=== PATIENT | male | born 1975 | race Caucasian/White ===

== ENCOUNTER 2016-12-08 19:09 | Emergency (ER) | payer OTHER ==
[~2016-12-08] VITALS: Ht 185.4 cm; Wt 83.9 kg
--- NOTE | ~2016-12-08 | CR252 ---
[facility] A Service of [facility] & [facility] RADIOLOGY TEXT RESULTS PATIENT: LY MCKEON LOCATION: CFTX : 77 UNIT #: [id number] AGE: [address]: BRENDAN ARVIZU APRN SEX: M ORDER DR: [id number] [facility] [address] [place], [place] [address] [id number] MR#: [id number] Acc #: [id number] NAME: LY MCKEON : 1975 SEX: M STUDY DATE/TIME: 12/08/2016 19:46 UNIT: [facility] ROOM: STUDY DESCRIPTION: CR Tibia and Fibula 2 Views Lt Attending Physician: Brendan Arvizu Aprn Ordering Physician: Brendan Arvizu Aprn Primary Care Physician: Primary Care Physician No MEDICAL IMAGING REPORT This report is preliminary unless electronic signature is present EXAM Left tibia and fibula, 12/08/2016 1946 hours HISTORY Pain, swelling and redness for 2 days over the lower extremity. Possible spider bite. COMPARISON None. FINDINGS AP, lateral views of the tibia and fibula demonstrate no fracture, periosteal reaction or foreign body. There is subcutaneous edema over the mid and distal lower extremity. IMPRESSION Subcutaneous edema, diffusely, over the mid and distal lower leg. Tibia and fibula are normal. No foreign body seen. Dictated by... Martha Durant M.D. THIS IS AN ELECTRONICALLY VERIFIED REPORT Martha Durant M.D. at 12/09/2016 9:28 AM JULIO CESAR/jerry TD: 12/08/2016 23:51 JOB #: [id number] MEDICAL IMAGING REPORT Page 1 of 1 COPY
[~2016-12-08 19:09] MED LIST: AMOXICILLIN500 M1 PO; NO MEDICATIONS; VOLTAREN75 MG PO
[2016-12-08 20:50] LABS: BASOPHIL% 0.3 % (0-2.5); EOSINOPHIL# 0.1 X10e3 (0-0.7); EOSINOPHIL% 1.1 % (0.0-7.0); HEMATOCRIT 38.7 % (38.0-50.0); LYMPHOCYTE# 1.9 X10e3 (1.0-3.5); LYMPHOCYTE% 21.8 % (17.0-45.0); MEAN CELL VOLUME 92.8 FL (83-96); MEAN CORPUSCULAR HEMOGLOBIN 31.1 PG (28-34); MEAN CORPUSCULAR HGB CONC 33.5 g/dL (30-36); MEAN PLATELET VOLUME 7.4 FL (6.5-11.5); MONOCYTE# 0.9 X10e3 (0-1.0); NEUTROPHIL# 5.9 X10e3 (1.5-7.1); NEUTROPHIL% 66.8 % (40-75); PLATELET COUNT 184 X10e3 (140-420); RED BLOOD COUNT 4.17 X10e (3.90-5.60); RED CELL DISTRIBUTION WIDTH 14.4 % (11.0-15.5); WHITE BLOOD COUNT 8.8 X10e3 (4.0-10.5)
[2016-12-08 20:51] LABS: DIFF IND NO
[2016-12-08 21:19] LABS: ALBUMIN SERUM 3.8 g/dL (3.5-5.0); BILIRUBIN, DIRECT 0.1 mg/dL (0.0-0.2); BILIRUBIN,INDIRECT 0.7 mg/dL (0.0-0.9); BILIRUBIN,TOTAL 0.8 mg/dL (0.2-2.0); BUN/CREATININE RATIO 13.33; CALCIUM SERUM 8.7 mg/dL (8.4-10.2); CREATININE SERUM 1.2 mg/dL (0.6-1.4); GLOM FILT RATE Estimated 75.2 mL/min (>60); POTASSIUM 3.9 mmol/L (3.5-5.1); PROTEIN TOTAL SERUM 6.8 g/dL (6.0-8.3)
== END 2016-12-08 22:25 | disposition home or self-care (01) ==
LOC: CED 19:09 → CFTX 19:09
PROVIDERS: Nurse Practitioner Family
DX: L03.116 Cellulitis of left lower limb (principal); F17.210 Nicotine dependence, cigarettes, uncomplicated; Z79.2 Long term (current) use of antibiotics; Z79.899 Other long term (current) drug therapy
CPT/HCPCS: 36415; 73590; 80048; 80076; 85025; 96365; 99283